=== PATIENT | male | born 1985 | race Caucasian/White ===

== ENCOUNTER 2017-11-15 10:50 | Emergency (ER) | payer OTHER ==
[2017-11-15 11:02] VITALS: BP 150/79; PULSE 82; TEMP 98.3; BMI 31.4
[2017-11-15] MEDS ORDERED: KETOROLAC TROMETHAMINE 30 MG/1 ML VIAL IM ONE (11:21)
[2017-11-15] MEDS ORDERED: KETOROLAC TROMETHAMINE 30 MG/1 ML VIAL ONE (11:25)
--- NOTE | 2017-11-15 11:28 | PDOC ---
History of Present Illness - General Chief Complaint: Cold Symptoms Stated Complaint: body aches, headache, cough Time Seen by Provider: 11/15/17 11:09 History Source: Patient Exam Limitations: No Limitations - History of Present Illness Initial Comments: 11/15/17 11:22 This is a 32-year-old male without significant past medical history presents emergency Department with 5 days of body aches, nasal congestion, headaches, dry cough and nausea. Receive his primary doctor who prescribed him Augmentin. Patient is taking Augmentin for 3 days without any significant improvement in symptoms. Patient reports feeling feverish but has not checked his temperature. He denies chills, vomiting, shortness of breath. PMD: Pina Sauer PSH: Denies PMH: Denies NKDA Patient denies any travel outside the [place] or contact with anyone who is travel outside the [place] within the past 30 days. Past History - Past Medical History Allergies/Adverse Reactions: Allergies Allergy/AdvReac Type Severity Reaction Status Date / Time No Known Allergies Allergy Verified 11/15/17 10:56 Home Medications: Ambulatory Orders NK [No Known Home Medication] 11/15/17 COPD: No - Immunization History Immunization Up to Date: Yes - Suicide/Smoking/Psychosocial Hx Smoking History: Never smoked Have you smoked in the past 12 months: No Information on smoking cessation initiated: No Hx Alcohol Use: Yes Drug/Substance Use Hx: No Substance Use Type: Alcohol Review of Systems - Review of Systems Able to Perform ROS?: Yes Is the patient limited German proficient: No Constitutional: Yes: See HPI HEENTM: Yes: See HPI Respiratory: Yes: See HPI Cardiac (ROS): Yes: See HPI ABD/GI: Yes: See HPI : No: Symptoms Reported Musculoskeletal: Yes: See HPI Integumentary: No: Symptoms Reported Neurological: No: Symptoms reported Endocrine: No: Symptoms Reported Hematologic/Lymphatic: No: Symptoms Reported *Physical Exam - Vital Signs Last Vital Signs Temp Pulse Resp BP Pulse Ox 98.3 F 82 19 150/79 100 11/15/17 10:52 11/15/17 10:52 11/15/17 10:52 11/15/17 10:52 11/15/17 10:52 - Physical Exam General Appearance: Yes: Appropriately Dressed. No: Apparent Distress HEENT: positive: Normal ENT Inspection, TMs Normal Neck: positive: Trachea midline, Supple. negative: Lymphadenopathy (R), Lymphadenopathy (L) Respiratory/Chest: positive: Lungs Clear, Normal Breath Sounds. negative: Respiratory Distress, Accessory Muscle Use Cardiovascular: positive: Regular Rhythm, Regular Rate, S1, S2. negative: Edema , Murmur Gastrointestinal/Abdominal: positive: Normal Bowel Sounds, Soft. negative: Tender Musculoskeletal: positive: Normal Inspection. negative: CVA Tenderness Extremity: positive: Normal Inspection Integumentary: positive: Normal Color, Dry, Warm Neurologic: positive: presentation team member II-XII NML intact, Fully Oriented, Alert, Normal Mood/ Affect, Normal Response, Motor Strength 03/28 Medical Decision Making - Medical Decision Making 11/15/17 11:25 A/P: This is a 32-year-old male without significant past medical history presents emergency Department with 5 days of body aches, nasal congestion, headaches, dry cough and nausea. Receive his primary doctor who prescribed him Augmentin. Patient is taking Augmentin for 3 days without any significant improvement in symptoms. Patient reports feeling feverish but has not checked his temperature. He denies chills, vomiting, shortness of breath. No tenderness to palpation over frontal or maxillary sinuses. Oropharynx clear without erythema or exudates. TMs pearly cortes with appropriate light reflex. No anterior posterior cervical lymphadenopathy. Respirations even and unlabored no sensory muscle use. Lungs clear to auscultation bilaterally. Regular rate and rhythm. No murmur rub or gallop. Abdomen soft nontender nondistended. Differential diagnosis include influenza versus URI I'll give the patient 30 mg of IM Toradol now. I will collect influenza nasopharyngeal swabs for testing. I'll reevaluate patient after medication and testing is been completed. 11/15/17 12:24 Influenza testing revealed positive influenza A. Patient is experiencing symptoms for the past 5 days if I will hold Tamiflu at this time. Results discussed with patient who understands and verbalized understanding of discharge instructions. *DC/Admit/Observation/Transfer Diagnosis at time of Disposition: Influenza A - Discharge Dispostion Disposition: HOME Condition at time of disposition: Stable Admit: No - Referrals Referrals: Guilherme Brown MD [Primary Care Provider] - - Patient Instructions Printed Discharge Instructions: DI for Influenza -- Adult Additional Instructions: Use a humidifier while sleeping at night to help keep mucous membranes moist. Take Tylenol as needed for fever and/or pain. Follow manufacturers instructions for appropriate dosage. You may take phenylephrine or Sudafed to help with nasal congestion. Follow manufacturers instructions for appropriate dosage. Keep well-hydrated. You may using Erendira pot to help with nasal congestion. Return to emergency department for worsening fevers, inability to hold down foods, worsening pain or any other concerns. Thank you very much for choosing us to provide your emergent healthcare needs. - Post Discharge Activity
--- NOTE | 2017-11-19 13:21 | EKG ---
Test Reason : Blood Pressure : / mmHG Vent. Rate : 081 BPM Atrial Rate : 081 BPM P-R Int : 192 ms QRS Dur : 088 ms QT Int : 362 ms P-R-T Axes : 082 041 036 degrees QTc Int : 420 ms NORMAL SINUS RHYTHM NORMAL ECG WHEN COMPARED WITH ECG OF 22-AUG-2015 13:49, NO SIGNIFICANT CHANGE WAS FOUND Confirmed by ANNALISE ROJAS MD ([id number]) on 11/19/2017 1:21:21 PM Referred By: Confirmed By:ANNALISE ROJAS MD
== END 2017-11-15 12:30 | disposition home or self-care (01) ==
LOC: JERFT 10:50
PROC: 3E0233Z Introduction of Anti-inflammatory into Muscle, Percutaneous Approach (ICD-10-PCS; principal; 2017-11-15)
DX: J09.X2 Influenza due to identified novel influenza A virus with other respiratory manifestations (principal)
CPT/HCPCS: 87804; 93005; 93010; 99281-25